=== PATIENT | male | born 1980 | race Caucasian/White ===

== ENCOUNTER 2024-05-01 08:49 | Emergency (ER) | payer SELFPAY ==
[2024-05-01 08:51] VITALS: BP 114/73
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
[2024-05-01 11:51] VITALS: BP 130/77
== END 2024-05-01 12:11 | disposition home or self-care (01) ==
LOC: EMR 08:49
PROVIDERS: EMERGENCY PHYSICIAN Emergency Medicine
DX: M54.30 Sciatica, unspecified side (principal)
CPT/HCPCS: 99284; 72110; 73502; 93971